=== PATIENT | female | born 1945 | race Caucasian/White ===

== ENCOUNTER 2018-02-12 15:46 | Outpatient (CLI) | payer MEDICARE | END 2018-02-12 15:47 | disposition home or self-care (01) | LOC: BICULT 15:46 | PROVIDERS: ATTEND Registered Nurse | DX: E07.9 Disorder of thyroid, unspecified (principal) | CPT/HCPCS: 76536 ==

== ENCOUNTER 2020-09-01 12:10 | Outpatient (CLI) | payer MEDICARE | END 2020-09-01 12:11 | disposition home or self-care (01) | LOC: BICRAD 12:10 | PROVIDERS: ATTEND Anesthesiology Pain Medicine | DX: M43.17 Spondylolisthesis, lumbosacral region (principal) | CPT/HCPCS: 72110 ==